=== PATIENT | male | born 2000 | race Caucasian/White ===

== ENCOUNTER 2020-12-23 22:29 | Emergency (ER) | payer BC, MEDICAID ==
[~2020-12-23] VITALS: Ht 182.9 cm; Wt 84.9 kg
[2020-12-23 22:35] VITALS: BP 140/84
[2020-12-23] MEDS ORDERED: DEXAMETHASONE 4 MG TABLET PO ONE (23:00)
--- NOTE | 2020-12-23 23:17 | PHYS DOC ---
Past Medical History Past Surgical History: No Surgical History Smoking Status: Never Smoker Alcohol Use: None General Adult EDM: Chief Complaint: SORE THROAT HPI: HPI: 20-year-old male who denies any significant past medical history, presents the ED with complaints of sore throat since Monday, noticed white stuff on his tonsils on Monday. Talked to a "doctor on demand" on Monday and was prescribed amoxicillin - has been taking for the past 2 days. States he called a medical hotline that told him his symptoms were concerning for an abscess and referred him to the emergency department. Has been vaccinated for Covid. Denies any associated drooling, speech changes, spitting, head/neck swelling or difficulties swallowing liquids. Review of Systems: Review of Systems: Constitutional: Denies fever or chills. [] Eyes: Denies change in visual acuity. [] HENT: Denies nasal congestion or sore throat. [] Respiratory: Denies cough or hemoptysis Cardiovascular: Denies chest pain or edema. [] GI: Denies nausea or vomiting Musculoskeletal: Denies back pain or joint pain. [] Integument: Denies rash or diaphoresis Neurologic: Denies headache, focal weakness or sensory changes. [] Endocrine: Denies polyuria or polydipsia. [] Lymphatic: Denies swollen glands. [] Psychiatric: Denies depression or anxiety. [] Heart Score: C/O Chest Pain: No Risk Factors: Risk Factors: DM, Current or recent (<one month) smoker, HTN, HLP, family history of CAD, obesity. Risk Scores: Score 0 - 3: 2.5% MACE over next 6 weeks - Discharge Home Score 4 - 6: 20.3% MACE over next 6 weeks - Admit for Clinical Observation Score 7 - 10: 72.7% MACE over next 6 weeks - Early Invasive Strategies Current Medications: Current Medications Medications (Trade) Dose Ordered Sig/Christopher Start Time Stop Time Status Last Admin Dose Admin Dexamethasone (Decadron) 10 mg 1X ONCE 12/23/20 23:00 12/23/20 23:01 DC 12/23/20 23:08 10 MG Allergies: Allergies: Allergies Coded Allergies Type Severity Reaction Last Updated Verified No Known Drug Allergies 12/23/20 No Physical Exam: PE: Constitutional: Well developed, well nourished, no acute distress, non-toxic appearance. HENT: Normocephalic, atraumatic, mild tonsillar erythema with copious exudates bilaterally, tonsils almost completely touching, uvula midline, no drooling/spitting/muffled speech Eyes: EOMI, conjunctiva normal, no discharge. Neck: Normal range of motion, supple, Cardiovascular: S1/2 present, regular rhythm Lungs & Thorax: Speaking in full sentences, bilateral equal chest rise, no tachypnea or increased work of breathing Abdomen: soft, no tenderness, Skin: Warm, dry, no erythema, no rash. [] Extremities: No tenderness, no cyanosis, Neurologic: Alert and oriented X 3, normal motor function, normal sensory function, no focal deficits noted. [] Psychologic: Affect normal, judgement normal, mood normal. [] Current Patient Data: Vital Signs: Vital Signs Date Time Temp Pulse Resp B/P (MAP) Pulse Ox O2 Delivery O2 Flow Rate FiO2 12/23/20 22:35 100.0 88 18 140/84 (102) 98 Room Air 100.0 EKG: EKG: [] Radiology/Procedures: Radiology/Procedures: []IMAGING REPORT Signed PATIENT: ELHAM MCCLOUD ACCOUNT: [id number] : 2000 LOCATION: ER AGE: 20 SEX: M EXAM STATUS: REG ER ORD. PHYSICIAN: DIONICIO BLUE DO REASON: sore throat PROCEDURE: CT SOFT TISSUE NECK W/CONTRAST PQRS Compliance Statement: One or more of the following individualized dose reduction techniques were utilized for this examination: 1. Automated exposure control 2. Adjustment of the mA and/or kV according to patient size 3. Use of iterative reconstruction technique CT NECK SOFT TISSUE WITH IV CONTRAST 12/23/2020 11:33 PM Indication: Sore throat COMPARISON: None available. TECHNIQUE: Multiple axial CT images of the neck were obtained after intravenous administration of nonionic contrast. FINDINGS: No suspicious abnormality identified involving the visualized portions of the brain parenchyma and posterior fossa. The skull base is normal. The visualized paranasal sinuses are well aerated. Orbital contents appear normal. The sella t urcica and cavernous sinus regions appear intact. The mastoid air cells are well aerated. The fossa of Rosenmuller is normal. Nasopharynx is normal in appearance. The parotid space contents and manager supply chain space contents appear intact. The parapharyngeal spaces are normal. The submandibular contents appear intact. Oral cavity, floor of mouth and sublingual space appear normal.. Striated enhancement involving the tonsils suggestive of pharyngitis. No abscess is identified. The tonsils partially efface the oropharyngeal airway and are enlarged, touching at the midline. The epiglottis, aryepiglottic folds, and piriform sinuses are normal. The vallecula appears normal. The larynx and trachea are normal. The thyroid gland is normal in appearance. The carotid space contents are normal. Right retropharyngeal lymph node measures 1.1 cm (series 2, image 81). Right level 2 cervical lymph node measures 1.7 cm (image 65). Left level 2 cervical lymph node measures 1.3 cm (image 64). The perivertebral space contents are normal. The supraclavicular regions appear intact. The visualized mediastinum is normal. The visualized lungs appear clear. No significant osseous abnormality. IMPRESSION: Pharyngitis without evidence for peritonsillar abscess or retropharyngeal abs cess. Tonsils partly effaced oropharyngeal airway and touch at the midline. Bilateral cervical lymphadenopathy is likely reactive. Right retropharyngeal lymph node is likely reactive. Electronically signed by: Iram Odom MD (12/24/2020 12:15 AM) [facility] DICTATED and SIGNED BY: IRAM ODOM MD DATE: 12/24/20 [id number] 0 Course & Med Decision Making: Course & Med Decision Making Pertinent Labs and Imaging studies reviewed. (See chart for details) Concern for acute pharyngitis in a hemodynamically stable male, afebrile, is protecting his airway. Patient with no speech changes and is controlling his secretions. Tonsils are nearly touching. Dexamethasone given in ed. Rapid strep negative. Recommended to continue oral antibiotics. Will discharge home with strict ED return precautions were given for difficulty swallowing, head or neck swelling,. Encouraged urgent outpatient follow-up with PMD and ENT for definitive management. Life-threatening processes were considered but are low suspicion at this time, given history, physical exam and ED workup. Pt was educated on all prescription medications and adverse effects. All patient's questions were answered and pt was stable at time of discharge. Life/limb-threatening differential includes but is not limited to, krystina's angina, peritonsillar abscess, retropharyngeal abscess, epiglottitis, bacterial tracheitis, uvulitis, sepsis, mastoiditis, traumatic injury, carotid/vertebral dissection, meningitis/encephalitis, intracranial aneurysms or neurologic process. I have spoken with the patient and/or caregivers. I explained the patient's condition, diagnoses and treatment plan based on the information available to me at this time. I have answered the patient and/or caregiver's questions and addressed any concerns. The patient and/or caregivers have a good understanding of patient's diagnosis, condition and treatment plan as can be expected at this point. Vital signs have been stable. Patient's condition is stable and appropriate for discharge from the emergency department. Patient will pursue further outpatient evaluation with primary care physician or other designated or consulting physician as outlined in the discharge instruct ions. The patient and/or caregivers are agreeable to this plan of care and follow-up instructions have been explained in detail. The patient and/or caregivers have received these instructions in written form and have expressed an understanding of the discharge instructions. The patient and/or caregivers are aware that any significant change of condition or worsening of symptoms should prompt immediate return to this or the closest emergency department or call to 911. Alley Disclaimer: Alley Disclaimer: This electronic medical record was generated, in whole or in part, using a voice recognition dictation system. Departure Departure Impression: Primary Impression: Pharyngitis, acute Disposition: HOME / SELF CARE / HOMELESS Condition: STABLE Referrals: NO PCP (PCP) Follow-up with your primary care physician in 24 to 48 hours OR FOLLOW UP WITH FAMILY MEDICINE: [address] [place] [address] Patient Instructions: Viral and Bacterial Pharyngitis Additional Instructions: FOLLOW UP WITH ENT: FOR DEFINITIVE MANAGEMENT of pharyngitis Otolaryngology [address] [facility], [address] [place] [address] applied computer science professor [facility] [address] [address] EMERGENCY DEPARTMENT GENERAL DISCHARGE INSTRUCTIONS Thank you for coming to [facility] Emergency Department (ED) today and trusting us with you care. We trust that you had a positive experience in our Emergency Department. If you wish to speak to the department management, you may call the Director at [phone]. YOUR FOLLOW UP INSTRUCTIONS ARE FOLLOWS: 1. Do you have a private Doctor? If you do not have a private doctor, please ask for a resource list of physicians or clinics that may be able to assist you with follow up care. 2. The Emergency Physicain has interpreted your x-rays. The X-Ray specialist will also review them. If there is a change in the findings, you will be notified in 48 hours when at all possible. 3. A lab test or culture has been done, your results will be reviewed and you will be notified if you need a change in treatment. ADDITIONAL INSTRUCTIONS AND INFORMATION: 1. Your care today has been supervised by a physician who is specially trained in emergency care. Many problems require more than one evaluation for a complete diagnosis and treatment. We recommend that you schedule your follow up appointment as recommended to ensure complete treatment of you illness or injury. If you are unable to obtain follow up care and continue to have a problem, or if your condition worsens, we recommend that you return to the ED. 2. We are not able to safely determine your condition over the phone nor are we able to give sound medical advice over the phone. For these safety reasons, if you call for medical advice we will ask you to come to the ED for further evaluation. 3. If you have any questions regarding these discharge instructions please call the ED at [phone]. SAFETY INFORMATION: In the interest of safety, wellness, and injury prevention; we encourage you to wear your sealbelt, if you smoke; quite smoking, and we encourage family to use a protective helmet for bicycling and other sporting events that present an increased risk for head injury. IF YOUR SYMPTOMS WORSEN OR NEW SYMPTOMS DEVELOP, OR YOU HAVE CONCERNS ABOUT YOUR CONDITION; OR IF YOUR CONDITION WORSENS WHILE YOU ARE WAITING FOR YOUR FOLLOW UP APPOINTMENT; EITHER CONTACT YOUR PRIMARY CARE DOCTOR, THE PHYSICIAN WHOSE NAME AND NUMBER YOU WERE GIVEN, OR RETURN TO THE ED IMMEDIATELY. Scripts Benzocaine/Menthol (CEPACOL SORE THROAT LOZENGE) 1 Each Lozenge 1 TAB PO Q4HRS for sore throat for 3 Days, #18 TAB 0 Refills Prov: DIONICIO BLUE DO 12/24/20 DIONICIO BLUE DO Dec 23, 2020 23:17
[2020-12-23 23:23] LABS: BASO # 0.1 x10^3/uL (0.0-0.2); BASO % 1 % (0-3); EOS % 0 % (0-3); HEMATOCRIT 44.9 % (39.0-53.0); HEMOGLOBIN 15.1 g/dL (13.0-17.5); LYMPH % 61 % (24-48); MEAN CORPUSCULAR HEMOGLOBIN 29 pg (25-35); MEAN CORPUSCULAR HGB CONC 34 g/dL (31-37); MEAN CORPUSCULAR VOLUME 85 fL (79-100); MONO # 1.9 x10^3/uL (0.0-1.1); MONO % 14 % (0-9); NEUT # 3.1 x10^3/uL (1.8-7.7); NEUT % 24 % (31-73); PLATELET COUNT 321 x10^3/uL (140-400); RED BLOOD COUNT 5.31 x10^6/uL (4.30-5.70); RED CELL DISTRIBUTION WIDTH 13.6 % (11.5-14.5); WHITE BLOOD COUNT 13.1 x10^3/uL (4.0-11.0)
[2020-12-23 23:31] LABS: CALCIUM 8.4 mg/dL (8.5-10.1); CREATININE 0.9 mg/dL (0.7-1.3); GFR 105.5
[2020-12-23] MEDS ORDERED: CONTRAST GIVEN. MC PRN (23:45)
[2020-12-23 23:59] LABS: % ATYL 22 % (0-0); % LYMPHS 40 % (24-48); % MONOS 12 % (0-10); % SEGS 26 % (35-66); PLT ESTIMATE ADEQUATE (ADEQUATE)
[2020-12-24] MEDS ORDERED: IOHEXOL 300 MG/ML 100ML VIAL. IV ONE
--- NOTE | 2020-12-24 00:18 | RAD ---
PQRS Compliance Statement: One or more of the following individualized dose reduction techniques were utilized for this examinat ion: 1. Automated exposure control 2. Adjustment of the mA and/or kV according to patient size 3. Use of iterative reconstruction technique CT NECK SOFT TISSUE WITH IV CONTRAST 12/23/2020 11:33 PM Indication: Sore throat COMPARISON: None available. TECHNIQUE: Multiple axial CT images of the neck were obtained after intravenous administration of non ionic contrast. FINDINGS: No suspicious abnormality identified involving the visualized portions of the brain parenchyma and p osterior fossa. The skull base is normal. The visualized paranasal sinuses are well aerated. Orbital contents appear normal. The sella turcica and cavernous sinus regions appear intact. The mastoid air cells are well aerated. The fossa of Rosenmuller is normal. Nasopharynx is normal in appearance. The parotid space contents a nd club car attendant space contents appear intact. The parapharyngeal spaces are normal. The submandibular contents appear intact. Oral cavity, floor of mouth and sublingual space appear normal.. Striated enhancement involving the tonsils suggestive of pharyngitis. No abscess is identified. The t onsils partially efface the oropharyngeal airway and are enlarged, touching at the midline. The epigl ottis, aryepiglottic folds, and piriform sinuses are normal. The vallecula appears normal. The laryn x and trachea are normal. The thyroid gland is normal in appearance. The carotid space contents are normal. Right retropharyngeal lymph node measures 1.1 cm (series 2, im age 79). Right level 2 cervical lymph node measures 1.7 cm (image 65). Left level 2 cervical lymph no de measures 1.3 cm (image 64). The perivertebral space contents are normal. The supraclavicular regions appear intact. The visualiz ed mediastinum is normal. The visualized lungs appear clear. No significant osseous abnormality. IMPRESSION: Pharyngitis without evidence for peritonsillar abscess or retropharyngeal abscess. Tonsils partly eff aced oropharyngeal airway and touch at the midline. Bilateral cervical lymphadenopathy is likely reac tive. Right retropharyngeal lymph node is likely reactive. Electronically signed by: Marsha Odom MD (12/24/2020 12:15 AM) [facility]
[2020-12-24] MEDS ORDERED: BENZ1LOZ48 PO (00:41)
== END 2020-12-24 01:04 | disposition home or self-care (01) ==
LOC: ER 22:29
DX: J02.9 Acute pharyngitis, unspecified (principal); Z20.822 Contact with and (suspected) exposure to COVID-19
CPT/HCPCS: 36415; 70491; 80048; 85007; 85025; 87070; 87426; 87880; 99285; Q9967